=== PATIENT | female | born 1945 | race Caucasian/White ===

== ENCOUNTER → 2016-12-22 | Outpatient (CLI) | payer MEDICARE ==
[~2016-12-22] VITALS: Ht 167.6 cm; Wt 58.4 kg
[~2016-12-22] MED LIST: ALPR.25 PO; CHLORHEXIDINE GLUCONATE 2 % 1 PACK (2 CLOTHS) TOPICAL PRN; CRANCAP2 PO; DO NOT ADM ANY ANTICOAGULANT DRUGS PRN; FISH1000 PO; FLUMAZENIL 0.5 MG/5 ML VIAL IV PRN; INSULIN HUMAN REGULAR 1,000 UNITS/10 ML VIAL SQ PRN; IOHEXOL 350 MG/ML 100 ML BTL (for EPS) IV ONE; LACTATED RINGER'S 1000 ML IV PRN; METOPROLOL TARTRATE 25 MG TAB PO PRN; MULTCAP2 PO; NALOXONE HCL 0.4 MG/ML AMP IV PRN; POTA99TA PO; POVIDONE IODINE 5% (ANTISEPSIS KIT) 4 APPLICATIONS EACH NARE PRN; PROB1TAB PO; PROPOFOL 200 MG/20 ML AMP IV ONE; SODIUM CHLORID 0.9% 500 ML IV PRN
[2016-12-22 12:53] VITALS: BP 135/75; PULSE 84; RESP 20; TEMP 97.6; O2SAT 97
[2016-12-22 16:50] VITALS: BP 117/69; PULSE 64; RESP 16; TEMP 97.5; O2SAT 97
--- NOTE | 2016-12-22 17:25 | RADRPT ---
EXAM DATE/TIME: 12/22/2016 14:25 [place] COMPARISON: CHEST PA & LAT, January 22, 2015, 14:38. INDICATIONS : Obstruction. Removal of gallstones. FLUORO TIME: 7.5 minutes IMAGE COUNT: 4 CONTRAST: Instilled by Ordering Physician MEDICAL HISTORY : None. SURGICAL HISTORY : None. ENCOUNTER: Initial ACUITY: 1 day PAIN SCORE: Non-responsive. LOCATION: Right upper quadrant abdomen FINDINGS/CONCLUSION: Initially ERCP films reveal multiple large stones in a common duct to at least 15 mm. One stone does extend into the right duct. Intrahepatic ducts appear normal. Large gallstone is seen in the gallbladder. In the post extraction cholangiogram film, the exam reveals no residual filling defects in the common duct. Copy of report sent to Dr. Garcia and Dr. Perez. Wade Osman MD FACR on December 22, 2016 at 16:09 Board Certified Radiologist. This report was verified electronically.
--- NOTE | 2016-12-23 10:25 | EKG ---
Date Performed: 12/22/2016 Time Performed: 12:27:04 PTAGE: 71 years EKG: Sinus rhythm NORMAL ECG NO PREVIOUS TRACING DOCTOR: Una Brantley Interpretating Date/Time 12/23/2016 10:23:55
== END ==
LOC: HSDC 11:51
DX: K80.71 Calculus of gallbladder and bile duct without cholecystitis with obstruction (principal); K57.10 Diverticulosis of small intestine without perforation or abscess without bleeding; Z01.810 Encounter for preprocedural cardiovascular examination
CPT/HCPCS: 74330; 93005; C1769; J3010; Q9967

== ENCOUNTER → 2016-12-31 | Day surgery (SDC) | payer MEDICARE ==
[~2016-12-31] MED LIST changes: +ACETAMINOPHEN 1000 MG/100 ML VIAL IV ONE; +BUPIVACAINE/EPINEPHRINE 0.5% PF 30 ML VIAL ONE; -CHLORHEXIDINE GLUCONATE 2 % 1 PACK (2 CLOTHS) TOPICAL PRN; -DO NOT ADM ANY ANTICOAGULANT DRUGS PRN; -FLUMAZENIL 0.5 MG/5 ML VIAL IV PRN; -INSULIN HUMAN REGULAR 1,000 UNITS/10 ML VIAL SQ PRN; -IOHEXOL 350 MG/ML 100 ML BTL (for EPS) IV ONE; +LACTATED RINGER'S 1000 ML INJ 1,000 ML ONE; -LACTATED RINGER'S 1000 ML IV PRN; +MEPERIDINE HCL 25 MG/ML VIAL ONE; -METOPROLOL TARTRATE 25 MG TAB PO PRN; +MIDAZOLAM HCL 2 MG/2 ML VIAL ONE; -NALOXONE HCL 0.4 MG/ML AMP IV PRN; +ONDANSETRON HCL 4 MG/2 ML VIAL IV PUSH ONE; -POVIDONE IODINE 5% (ANTISEPSIS KIT) 4 APPLICATIONS EACH NARE PRN; -SODIUM CHLORID 0.9% 500 ML IV PRN; +ceFAZolin INJ 1,000 MG VIAL ONE; +metroNIDAZOLE 500 MG INJ 100 ML IV ONE
--- NOTE | 2016-12-31 13:10 | TN ---
cc: ROM ESTES M.D., ANDREW H. M.D. KHAN, GOHAR S. M.D. BIANCHI, JOSEPH D. M.D. DATE OF SURGERY: 12/31/2016 PREOPERATIVE DIAGNOSIS Choledocholithiasis status post ERCP with cholecystitis and cholelithiasis. POSTOPERATIVE DIAGNOSIS Choledocholithiasis status post ERCP with cholecystitis and cholelithiasis. PROCEDURE Laparoscopic cholecystectomy. ANESTHESIA General. SURGEON Dr. Garcia INDICATION This is a pleasant 71-year-old female who was having some abdominal discomfort. She had an ultrasound done which showed a couple of stones in her common duct. Dr. Rom Estes did an ERCP pulling out numerous stones from her common duct, and now she is set for cholecystectomy. DETAILS OF PROCEDURE The patient was taken to the operating room and placed in a supine position. After endotracheal anesthesia her abdomen is draped and prepped with Betadine solution. We make an incision just below the umbilicus. A Veress needle is inserted. A saline load test is performed. The abdomen is insufflated with 15 mmHg. A trocar is introduced. Three other working ports are placed, 5 mm below the xyphoid, 5 mm in between the two previously placed ports, and a third working port in the right lower quadrant. The gallbladder is quite floppy, has signs of chronic inflammation with adhesions. These are taken down with blunt dissection, hydrodissection and electrocautery. We are then able to dissect down to the angle of Calot and it is noted that she has a fairly sizeable common duct. The cystic duct is enlarged as well. Adhesions are along the cystic duct and common duct. These are gently teased away with hydrodissection and using a Kitner. After clearly identifying the cystic duct which is quite elongated and doing somewhat of a retrograde dissection we are able to triply ligate the cystic duct and put a clip on the small cystic artery. We are then able to tease the gallbladder out the gallbladder bed, place into an EndoCatch and pull out through the umbilical incision. We then irrigate copiously. There is excellent hemostasis without biliary leakage. No other gross abnormality is seen. She has her appendix and it appears normal. The liver is smooth, the peritoneal surfaces are smooth and I do not see any other gross abnormality. The irrigating solution and CO2 is removed. The umbilical trocar port site at the fascial layer is closed with 0 Vicryl in interrupted fashion and the skin at all four sites is closed with 4-0 Vicryl. Steri-Strips applied. Sterile bandage applied. The patient tolerated the procedure well and had no immediate post-op complication. Bar Garcia MD JMARKUS/EDWAR /12:36 PM /12:59 PM
== END | disposition home or self-care (01) ==
LOC: ESDC 10:12
PROVIDERS: ATTEND Surgery
DX: K80.10 Calculus of gallbladder with chronic cholecystitis without obstruction (principal)
CPT/HCPCS: 00790; 47562; 88304; J0131; J0690; J2175; J2250; J2405; J3010; J7120